=== PATIENT | female | born 1995 | race Caucasian/White ===

== ENCOUNTER 2017-05-28 16:28 | Emergency (ER) | payer MEDICAID, OTHER ==
[2017-05-28 17:09] VITALS: BMI 34.7
[2017-05-28] MEDS ORDERED: Sodium Chloride 0.9% 1,000 ML IV STA ×2 (18:23→19:40)
[2017-05-28 19:01] LABS: BASO # 0.01 K/mm3 (0.0-2.0); BASO % 0.2 % (0.0-3.0); GRAN # 1.99 (1.4-6.5); GRAN % 47.6 % (50.0-68.0); HEMOGLOBIN 12.9 g/dL (12.0-16.0); LYMPH # 1.6 (1.2-3.4); LYMPH % 37.8 % (22.0-35.0); MEAN CELL VOLUME 77.4 fl (80.0-105.0); MEAN CORPUSCULAR HEMOGLOBIN 24.9 pg (25.0-35.0); MEAN CORPUSCULAR HGB CONC 32.2 g/dl (31.0-37.0); MEAN PLATELET VOLUME 11.4 fl (7.0-11.0); MONO # 0.6 (0.1-0.6); MONO % 14.4 % (1.0-6.0); RBC 5.18 10^6/uL (3.5-6.1); RED CELL DISTRIBUTION WIDTH 13.8 % (11.5-14.5); WHITE BLOOD COUNT 4.2 10^3/ul (4.5-11.0)
[2017-05-28 19:07] LABS: URINE BILIRUBIN NEGATIVE (NEGATIVE); URINE BLOOD NEGATIVE (NEGATIVE); URINE GLUCOSE (UA) NEGATIVE (NEGATIVE); URINE LEUKOCYTE ESTERASE TRACE Leu/uL (NEGATIVE); URINE NITRATE NEGATIVE (NEGATIVE); URINE PROTEIN 100 mg/dL (<30 mg/dL); URINE UROBILINOGEN 0.2 E.U./dL (<1 E.U./dL)
[2017-05-28 19:08] LABS: URINE APPEARANCE CLEAR (CLEAR); URINE COLOR YELLOW (YELLOW)
[2017-05-28 19:08] LABS: ALB/GLOB RATIO 1.3 (1.1-1.8); ALBUMIN 4.4 g/dL (3.0-4.8); ALT/SGPT 48 U/L (7-56); AMYLASE 64 U/L (35-125); AST/SGOT 50 U/L (14-36); BLOOD UREA NITROGEN 15 mg/dL (7-21); CALCIUM 9.4 mg/dL (8.4-10.5); GFR AFRICAN-AMERICAN > 60; GFR NON-AFRICAN AMERICAN > 60; LIPASE 88 U/L (23-300)
[2017-05-28 19:15] LABS: URINE BACTERIA SMALL (NEG); URINE RBC 0 - 2 /hpf (0-2)
[2017-05-28 19:16] LABS: INR 1.16 (0.93-1.08); PROTHROMBIN TIME 13.3 SECONDS (9.4-12.5)
[2017-05-28 19:17] LABS: PARTIAL THROMBOPLASTIN TIME 29.8 Seconds (25.1-36.5)
[2017-05-28 20:57] VITALS: BP 124/78; PULSE 78; TEMP 98.8; O2SAT 98
--- NOTE | 2017-05-28 21:15 | ED PDOC ---
Arrival/HPI - General Chief Complaint: Flu-like Symptoms Time Seen by Provider: 05/28/17 18:23 Historian: Patient - History of Present Illness Narrative History of Present Illness (Text): 05/28/17 21:20 22-year-old female presents today with cough and nasal congestion sore throat and body aches 3 days. Patient states her daughter was diagnosed with the flu and shortly after the patient developed symptoms. Patient states she's been having fevers at home. She is complaining of nasal congestion. Patient states she's been having some nausea and vomiting. She denies chest pain or shortness of breath. Patient states she has some pain in the upper abdomen and points to the epigastric region. Patient denies any urinary symptoms. Denies dizziness or weakness. No other complaints Past Medical History - Provider Review Nursing Documentation Reviewed: Yes - Travel History Have you recently traveled outside [place] w/in the past 3 mons?: No - Infectious Disease Hx of Infectious Diseases: None - Past Medical History Past Medical History: No Previous - Psychiatric Hx Psychophysiologic Disorder: No Hx Anxiety: No Hx Bipolar Disorder: No Hx Depression: No Hx Emotional Abuse: No Hx Hallucinations: No Hx Panic Disorder: No Hx Post Traumatic Stress Disorder: No Hx Psychosis: No Hx Physical Abuse: No Hx Schizophrenia: No Hx Sexual Abuse: No Hx Substance Use: No - Past Surgical History Past Surgical History: No Previous - Anesthesia Hx Anesthesia: No Hx Anesthesia Reactions: No Hx Malignant Hyperthermia: No - Suicidal Assessment Feels Threatened In Home Enviroment: No Family/Social History - Physician Review Nursing Documentation Reviewed: Yes Family/Social History: Unknown Family HX Smoking Status: Former Smoker Hx Alcohol Use: No Hx Substance Use: No Hx Substance Use Treatment: No Allergies/Home Meds Allergies/Adverse Reactions: Allergies No Known Allergies Allergy (Verified 03/30/13 17:24) Review of Systems - Review of Systems Constitutional: Fatigue, Fevers Respiratory: Cough. absent: SOB Cardiovascular: absent: Chest Pain, Palpitations Gastrointestinal: Abdominal Pain, Nausea, Vomiting. absent: Constipation, Diarrhea Genitourinary Female: absent: Dysuria Musculoskeletal: absent: Arthralgias Skin: absent: Rash, Pruritis Neurological: Headache, Dizziness Psychiatric: absent: Anxiety, Depression, Suicidal Ideation Physical Exam Vital Signs Reviewed: Yes Vital Signs Temp Pulse Resp BP Pulse Ox 05/28/17 20:57 98.8 F 78 20 124/78 98 05/28/17 18:43 100.0 F H 05/28/17 17:11 100 F H 89 18 110/63 97 Temperature: Febrile Blood Pressure: Normal Pulse: Regular Respiratory Rate: Normal Appearance: Positive for: Well-Appearing, Non-Toxic, Comfortable Pain Distress: None Mental Status: Positive for: Alert and Oriented X 3 - Systems Exam Head: Present: Atraumatic Conjunctiva: Present: Normal Ears: Present: Normal, NORMAL TM Mouth: Present: Moist Mucous Membranes. No: Drooling, Trismus Pharnyx: Present: Normal. No: ERYTHEMA, EXUDATE, TONSILS ENLARGED, Uvular Deviation, Muffled/Hoarse Voice Nose (External): Present: Atraumatic Nose (Internal): Present: Normal Inspection Neck: Present: Normal Range of Motion, Trachea Midline. No: Lymphadenopathy Respiratory/Chest: Present: Clear to Auscultation, Good Air Exchange. No: Respiratory Distress, Accessory Muscle Use Cardiovascular: Present: Regular Rate and Rhythm, Normal S1, S2. No: Murmurs Abdomen: Present: Tenderness (minimal epigastric tenderness), Normal Bowel Sounds. No: Distention, Peritoneal Signs, Rebound, Guarding Back: Present: Normal Inspection. No: CVA Tenderness, Midline Tenderness, Paraspinal Tenderness Upper Extremity: Present: Normal ROM Lower Extremity: Present: Normal ROM Neurological: Present: GCS=15, Speech Normal Skin: Present: Warm, Dry, Normal Color. No: Rashes Psychiatric: Present: Alert, Oriented x 3 Medical Decision Making ED Course and Treatment: 05/28/17 21:10 Patient is nontoxic well-appearing. C/o flu-like symptoms. with daughter with + flu at home. with N/v tylenol PO NS iv bolus x2 zofran pepcid cbc; wnl cmp: wnl cxr; wnl Tamiflu po zithromax po Patient reassessment: Pt feeling much better; vitals stable. no vomiting in er. discussed all results with patient. I advised follow up with primary care physician within the next 2 days. I advised increase fluids and return if symptoms worsen persist or if new symptoms develop Patient verbalizes understanding of discharge instructions and need for immediate followup. all aspects of this case were discussed the attending of record. IMPRESSION; Influenza, nausea/vomiting tylenol every 4 hours as needed for pain/fever reduction motrin every 6 hours as needed for pain/fever reduction pepcid once daily. Tamiflu: 1 capsule twice daily 5 days Increase fluids Followup with primary care physician the next 2 days Return if symptoms worsen persist or if new symptoms develop: Continued high fevers, dizziness, weakness, chest pain or shortness of breath vomiting/diarrhea , or if any other concerning symptoms develop 05/28/17 21:15 Reassessment Condition: Re-examined, Improved - Lab Interpretations Lab Results: 05/28/17 18:50 05/28/17 18:50 Lab Results 05/28/17 18:51: Urine Color Yellow, Urine Appearance Clear, Urine pH 6.0, Ur Specific [place] >= 1.030, Urine Protein 100 H, Urine Glucose (UA) Negative, Urine Ketones 40 H, Urine Blood Negative, Urine Nitrate Negative, Urine Bilirubin Negative, Urine Urobilinogen 0.2, Ur Leukocyte Esterase Trace H, Urine RBC 0 - 2, Urine WBC 1 - 3, Ur Epithelial Cells 3 - 4, Urine Bacteria Small 05/28/17 18:50: PT 13.3 H, INR 1.16 H, APTT 29.8 05/28/17 18:50: WBC 4.2 L D, RBC 5.18, Hgb 12.9, Hct 40.1, MCV 77.4 L, MCH 24.9 L, MCHC 32.2, RDW 13.8, Plt Count 149, MPV 11.4 H, Gran % 47.6 L, Lymph % (Auto ) 37.8 H, [place] % (Auto) 14.4 H, Eos % (Auto) 0.0 L, Baso % (Auto) 0.2, Gran # 1.99, Lymph # (Auto) 1.6, [place] # (Auto) 0.6, Eos # (Auto) 0.0, Baso # (Auto) 0.01 05/28/17 18:50: Sodium 138, Potassium 3.6, Chloride 98, Carbon Dioxide 29, Anion Gap 14, BUN 15, Creatinine 0.9, Est GFR ( Amer) > 60, Est GFR (Non- Af Amer) > 60, Random Glucose 85, Calcium 9.4, Total Bilirubin 0.4, AST 50 H, ALT 48, Alkaline Phosphatase 69, Total Protein 7.9, Albumin 4.4, Globulin 3.5, Albumin/Globulin Ratio 1.3, Amylase 64, Lipase 88 - RAD Interpretation Radiology Orders: 05/28/17 18:23 CHEST TWO VIEWS (PA/LAT) [RAD] Stat - Medication Orders Current Medication Orders: Discontinued Medications Acetaminophen (Tylenol 325mg Tab) 975 mg PO STAT STA Stop: 05/28/17 18:24 Last Admin: 05/28/17 18:43 Dose: 975 mg MAR Pain/Vitals Document 05/28/17 18:43 [email or web address] (Rec: 05/28/17 18:43 [email or web address] [facility]- [email or web address]) Vitals Temperature (97.6 F-99.6 F) 100.0 F Temperature Source Oral Azithromycin (Zithromax) 500 mg PO STAT STA PRN Reason: Protocol Stop: 05/28/17 21:07 Famotidine (Pepcid) 20 mg IVP STAT STA Stop: 05/28/17 18:24 Last Admin: 05/28/17 18:43 Dose: 20 mg IVP Administration Document 05/28/17 18:43 [email or web address] (Rec: 05/28/17 18:43 [email or web address] [facility]- [email or web address]) Charges for Administration # of IVP Administrations 1 Sodium Chloride (Sodium Chloride 0.9%) 1,000 mls @ 999 mls/hr IV .Q1H1M STA Stop: 05/28/17 19:23 Last Admin: 05/28/17 18:43 Dose: 999 mls/hr eMAR Start Stop Document 05/28/17 18:43 [email or web address] (Rec: 05/28/17 18:43 [email or web address] [facility]- [email or web address]) Intravenous Solution Start Date 05/28/17 Start Time 18:43 End Date 05/28/17 Sodium Chloride (Sodium Chloride 0.9%) 1,000 mls @ 999 mls/hr IV .Q1H1M STA Stop: 05/28/17 20:40 Last Admin: 05/28/17 20:08 Dose: 999 mls/hr eMAR Start Stop Document 05/28/17 20:08 [email or web address] (Rec: 05/28/17 20:08 [email or web address] [facility]- [email or web address]) Intravenous Solution Start Date 05/28/17 Start Time 20:08 End Date 05/28/17 Ondansetron HCl (Zofran Inj) 4 mg IVP STAT STA Stop: 05/28/17 18:24 Last Admin: 05/28/17 18:44 Dose: 4 mg IVP Administration Document 05/28/17 18:44 [email or web address] (Rec: 05/28/17 18:44 [email or web address] [facility] Charges for Administration # of IVP Administrations 1 Oseltamivir Phosphate (Tamiflu Cap) 75 mg PO STAT STA PRN Reason: Protocol Stop: 05/28/17 19:41 Last Admin: 05/28/17 20:08 Dose: 75 mg Disposition/Present on Arrival - Present on Arrival Any Indicators Present on Arrival: No History of DVT/PE: No History of Uncontrolled Diabetes: No Urinary Catheter: No History of Decub. Ulcer: No History Surgical Site Infection Following: None - Disposition Have Diagnosis and Disposition been Completed?: Yes Diagnosis: Influenza, Cough, Nausea & vomiting Disposition: HOME/ ROUTINE Disposition Time: 21:09 Patient Plan: Discharge Patient Problems: Current Active Problems Problem Status Onset Cough Acute Influenza Acute Nausea & vomiting Acute Condition: GOOD Discharge Instructions (ExitCare): Flu, Adult (DC), Nausea and Vomiting, Adult (DC) Additional Instructions: tylenol every 4 hours as needed for pain/fever reduction motrin every 6 hours as needed for pain/fever reduction pepcid once daily. zithromax; 1 tablet daily x 4 days. Tamiflu: 1 capsule twice daily 5 days flonase; 2 sprays each nostril once daily. Increase fluids Followup with primary care physician the next 2 days Return if symptoms worsen persist or if new symptoms develop: Continued high fevers, dizziness, weakness, chest pain or shortness of breath vomiting/diarrhea , or if any other concerning symptoms develop Prescriptions: Acetaminophen [Acetaminophen Extra Strength] 500 mg PO Q4H PRN #30 tablet PRN Reason: pain/fever reduction Azithromycin [Zithromax] 250 mg PO DAILY #4 tab Famotidine [Pepcid] 20 mg PO DAILY #30 tab Fluticasone Nasal [Flonase] 2 spr NS DAILY #1 spr Oseltamivir [Tamiflu] 75 mg PO BID #10 cap Referrals: [facility] [place] - Follow up with primary Asuncion Mart MD [Staff Provider] - Follow up with primary Pete Daniel MD [Medical Doctor] - Follow up with primary
[2017-05-28 21:40] VITALS: RESP 19
--- NOTE | 2017-05-29 08:04 | RAD ---
HISTORY: cough/fever COMPARISON: 02/21/2016 TECHNIQUE: Chest PA and lateral FINDINGS: LUNGS: No active pulmonary disease. PLEURA: No significant pleural effusion identified. No pneumothorax apparent. CARDIOVASCULAR: Normal. OSSEOUS STRUCTURES: No significant abnormalities. VISUALIZED UPPER ABDOMEN: Normal. OTHER FINDINGS: None. IMPRESSION: No active disease.
== END 2017-05-28 21:40 | disposition home or self-care (01) ==
LOC: ED 16:28
DX: J11.1 Influenza due to unidentified influenza virus with other respiratory manifestations (principal); R11.2 Nausea with vomiting, unspecified; Z87.891 Personal history of nicotine dependence
CPT/HCPCS: 71046; 80053; 81001; 82150; 83690; 85025; 85610; 85730; 87086; 96374; 96375; 99283; J2405; J7040